=== PATIENT | female | born 1990 | race Caucasian/White ===

== ENCOUNTER 2017-09-02 08:55 | Day surgery (SDC) | payer OTHER ==
[2017-08-29 08:44] LABS: Absolute Monocytes 0.4 K/uL (0.1-1.3); Absolute Neutrophil 5.8 K/uL (1.8-8.0); Basophils % 0.6 % (0-1.3); Eosinophils % 1.6 % (0-4.4); Hematocrit 39.9 % (36.0-45.0); Lymphocytes % 32.1 % (15.3-44.8); MCH 31.1 pg (27.0-35.0); MPV 7.4 fL (7.6-11.3); Monocytes % 4.5 % (3.3-12.3); RBC Red Blood Cell Count 4.38 M/uL (3.86-4.86)
[~2017-09-02 08:55] MED LIST: DOXYCYCLINE 200 MG in NA CHLORIDE 0.9% 250 ML IVPB SCH
[2017-09-02 09:41] LABS: Specific Gravity 1.025 (1.005-1.030)
[2017-09-02] MEDS ORDERED: Ringers Lactate 1,000 ML IV ONE (10:02)
[2017-09-02] MEDS ORDERED: OXYTOCIN 10 UNIT/ML ML IV ONE (10:09)
[2017-09-02] MEDS ORDERED: METHYLERGONOVINE 0.2MG/ML AMP IM ONE (10:10)
[2017-09-02] MEDS ORDERED: MIDAZOLAM HCL 2 MG/2 ML INJ ONE (10:23)
[2017-09-02] MEDS ORDERED: PROPOFOL 200 MG/20 ML VIAL IV ONE (10:24)
[2017-09-02] MEDS ORDERED: LIDOCAINE 2% MPF 5 ML VIAL ONE (10:24)
[2017-09-02] MEDS ORDERED: ONDANSETRON 4 MG/2 ML VIAL ONE (10:25)
[2017-09-02] MEDS ORDERED: FENTANYL CITR 100 MCG/2 ML ONE (10:25)
[2017-09-02] MEDS ORDERED: SCOPOLAMINE HYDROBROMIDE PATCH TD ONE (10:34)
[2017-09-02] MEDS ORDERED: MEPERIDINE HCL 25 MG/0.5 ML ONE (11:30)
--- NOTE | 2017-09-02 21:23 | OP ---
Surgeon: Jake Rubi MD Preoperative Diagnosis: Inevitable . Procedure: Dilatation and curettage of the uterine endometrium for completion of . Postoperative Diagnosis: Inevitable . Description Of Procedure: After satisfactory level of general anesthesia was obtained, the patient w as prepped and draped in the usual fashion for vaginal surgery and high leg holders. A weighted spec ulum was placed in the posterior vagina. Cervix visualized, grasped with single-tooth tenaculum. Ut erus was sounded to approximately 10 cm and dilated sufficiently to accept an 8 curved suction curett e with productive moderate amount of tissue. This was followed by sharp curettage with Myah curett e and then suction curettage. The patient received 200 mg of doxycycline IV preoperatively for proph ylaxis. She received 0.2 mg IM methargen and 20 units of Pitocin was added to the IV fluids in the O R. She was awakened and taken to recovery room in satisfactory condition. Estimated total blood los s was less than 10 mL. FER/SANTI Voice ID: [id number] Report ID: [id number]
--- NOTE | 2017-09-02 21:25 | DS ---
Date of Discharge: 09/02/2017 DISMISSAL SUMMARY Final Hospital Discharge Diagnosis: Inevitable . Complications: None. Procedures: Dilatation and curettage of uterine endometrium for completion of . Hospital Course: The patient is a 27-year-old, female, 1, para 0, with nonviable p regnancy on ultrasound x2 through [facility]. She underwent dilatation and curettage fo r completion of an inevitable . She was dismissed to be seen back in my office in 2 weeks wi th the usual post D and C activity restrictions. Lab work included admission hemoglobin and hematocr it of 13.6, 39.9. On lab work, she was AB positive blood type, so did not require RhoGAM. She was dismissed with prescription for Tylenol No. 3, number 10 for pain relief, Methergine to compl ete a 24-hour course. FER/SANTI Voice ID: [id number] Report ID: [id number]
== END 2017-09-02 12:57 | disposition home or self-care (01) ==
LOC: OR 08:55
PROVIDERS: ATTEND Specialist
PROC: 10D17ZZ Extraction of Products of Conception, Retained, Via Natural or Artificial Opening (ICD-10-PCS; principal; 2017-09-02 10:00)
DX: O02.1 Missed abortion (principal); Z82.49 Family history of ischemic heart disease and other diseases of the circulatory system; Z83.3 Family history of diabetes mellitus
CPT/HCPCS: 36415; 81025; 85025; 86900; 86901; 88305; J2175; J2210; J2250; J2405; J2590; J3010

== ENCOUNTER 2022-01-06 09:49 | Emergency (ER) | payer OTHER ==
[2022-01-06 10:40] LABS: Urine Blood Negative (Negative); Urine Glucose Negative (Negative); Urine Protein Negative (Negative); Urine Specific Gravity <=1.005 (1.005-1.030)
[2022-01-06 11:49] LABS: Absolute Lymphocytes (CBC) 2.1 K/uL (0.7-4.9); Hematocrit 41.1 % (36.0-45.0); Lymphocytes % 15.5 % (15.3-44.8); MCV 89.7 fL (80-100); MPV 7.1 fL (7.6-11.3); RBC Red Blood Cell Count 4.59 M/uL (3.86-4.86)
[2022-01-06 12:07] LABS: Potassium 3.4 mmol/L (3.5-5.1)
--- NOTE | 2022-01-06 12:33 | RAD REPORT ---
EXAM DESCRIPTION: US - Transvaginal OB - 01/06/2022 11:32 am CLINICAL HISTORY: with pelvic pain COMPARISON: 2018 FINDINGS: The uterus measures 10 x 7 x 8 centimeters. The endometrial stripe measures 19 millimeter s. A gestational sac is not seen. Several uterine fibroids. Largest measures 5.5 centimeters. It is s ubserosal Right ovary normal size and echotexture. 2 centimeters cyst. Left ovary not seen secondary to overlying bowel gas The right and left adnexa unremarkable No significant free fluid IMPRESSION: Nonvisualization of a gestational sac within the endometrium. These findings could represent an early intrauterine in which the gestational sac is not se en. and even an ectopic can also result in this appearance. This all should be cor related clinically and with serial beta HCG levels. Followup endovaginal sonogram in 1 week recommend ed
[2022-01-06] MEDS ORDERED: NA CHLORIDE 0.9% 1,000 ML ONE (12:35)
[2022-01-06] MEDS ORDERED: ONDANSETRON 4 MG/2 ML VIAL ONE (12:35)
[2022-01-06] MEDS ORDERED: LACTULOSE 20 GM/30 ML UCUP ONE (14:03)
--- NOTE | 2022-01-06 14:46 | ER ---
Nurse's Notes [facility] Name: Toyin Estevez Age: 31 yrs Sex: Female : 1990 Arrival Date: 01/06/2022 Time: 09:51 Bed 11 Private MD: Diagnosis: Constipation;Less than 8 weeks gestation of Presentation: 01/06 10:31 Chief complaint: Patient states: Suprapubic and pelvic pain that began yesterday, worse ss today. Pt reports positive home test 3 days ago. Coronavirus screen: Client denies travel out of the [place] in the last 14 days. Ebola Screen: Patient denies exposure to infectious person. Patient denies travel to an Ebola-affected area in the 21 days before illness onset. Initial Sepsis Screen: Does the patient meet any 2 criteria? No. Patient's initial sepsis screen is negative. Does the patient have a suspected source of infection? No. Patient's initial sepsis screen is negative. Risk Assessment: Do you want to hurt yourself or someone else? Patient reports no desire to harm self or others. Onset of symptoms was January 05, 2022. 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 - Social history:: Smoking status: Patient denies any tobacco usage or history of. Assessment: 15:09 Reassessment: Patient appears in no apparent distress at this time. Patient is alert, ss oriented x 3, equal unlabored respirations, skin warm/dry/pink. Respiratory: Respiratory effort is even, unlabored, Respiratory pattern is regular, symmetrical. Vital Signs: 10:31 BP 131 / 95; Pulse 115; Resp 16; Temp 98.2(TE); Pulse Ox 100% on R/A; Weight 80.74 kg; ss Height 5 ft. 4 in. (162.56 cm); Pain 3/10; 10:31 Body Mass Index 30.55 (80.74 kg, 162.56 cm) ED Course: 09:51 Patient arrived in ED. mr 09:54 [facility] 09:54 Deborah Rankin MD is Attending Physician. 7 10:32 Triage completed. ss 10:32 Arm band placed on right wrist. ss 11:23 US Transvaginal Ob In Process Unspecified. EDMS 11:23 Pelvis Complete In Process Unspecified. EDMS 11:37 Inserted saline lock: 20 gauge in right antecubital area, using aseptic technique. zm Blood collected. 11:37 Basic Metabolic Panel Sent. zm 11:37 CBC with Diff Sent. zm 11:38 Quantitative Hcg Sent. zm 12:54 Placed in gown. Bed in low position. Call light in reach. Side rails up X 1. Door 7 closed. Noise minimized. Warm blanket given. 12:59 Fallon Sanchez, RAQUEL is Primary Nurse. 14:44 Maury White MD is Referral Physician. [facility] 15:09 No provider procedures requiring assistance completed. IV discontinued, intact, ss bleeding controlled, No redness/swelling at site. Pressure dressing applied. Administered Medications: 12:50 Drug: NS 0.9% 1000 ml Route: IV; Rate: 1 bolus; Site: right antecubital; ss 12:59 Not Given (Patient Refused): Zofran (Ondansetron) 4 mg IVP once; over 2 minutes ss 13:59 Drug: Lactulose 30 grams Volume: 45 ml; Route: PO; ss Outcome: 14:45 Discharge ordered by . [facility] 15:09 Discharged to home ambulatory. 15:09 Condition: good 15:09 Discharge instructions given to patient, family, Instructed on discharge instructions, follow up and referral plans. medication usage, Demonstrated understanding of instructions, follow-up care, medications, Prescriptions given X 1. 15:09 Patient left the ED. Signatures: Dispatcher [employer] Missy Mott Fallon Sanchez RN RN Missy Mclaughlin Mallory Virk Carrie Perry FNP FNP [facility] Corrections: (The following items were deleted from the chart) 10:32 10:32 PMHx: None; [facility] 10:33 10:31 Chief complaint: Patient states: Suprapubic and pelvic pain that began yesterday, ss worse today. ss
--- NOTE | 2022-01-06 14:46 | EDPHYS ---
Physician Documentation [facility] Name: Toyin Estevez Age: 31 yrs Sex: Female : 1990 Arrival Date: 01/06/2022 Time: 09:51 Bed 11 Private MD: ED Physician Deborah Rankin HPI: 01/06 10:15 This 31 yrs old Female presents to ER via Ambulatory with complaints of Abdominal Pain, jh7 Pelvic Pain. 10:15 The patient presents with abdominal pain in the lower abdomen, Pelvic pain. Onset: The jh7 symptoms/episode began/occurred 1 day(s) ago. 31-year-old female presents with pelvic pain since yesterday. Reports that the pain is worse when she sits down on the toilet. Reports mild nausea as well. States that she took a test 3 days ago and that it was positive. Also states that she has not had a bowel movement in 2 days. The patient reports that she has been under a lot of stress lately and thinks that this may be the cause. 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 - Social history:: Smoking status: Patient denies any tobacco usage or history of. ROS: 10:15 Constitutional: Negative for fever, chills, and weight loss, ENT: Negative for injury, jh7 pain, and discharge, Neck: Negative for injury, pain, and swelling, Cardiovascular: Negative for chest pain, palpitations, and edema, Respiratory: Negative for shortness of breath, cough, wheezing, and pleuritic chest pain, Back: Negative for injury and pain, MS/Extremity: Negative for injury and deformity, Skin: Negative for injury, rash, and discoloration, Neuro: Negative for headache, weakness, numbness, tingling, and seizure. 10:15 Abdomen/GI: Positive for nausea, constipation, Pelvic pain, Negative for diarrhea. 10:15 All other systems are negative. Exam: 10:15 Constitutional: This is a well developed, well nourished patient who is awake, alert, jh7 and in no acute distress. Eyes: Pupils equal round and reactive to light, extra-ocular motions intact. Lids and lashes normal. Conjunctiva and sclera are non-icteric and not injected. Cornea within normal limits. Periorbital areas with no swelling, redness, or edema. ENT: Nares patent. No nasal discharge, no septal abnormalities noted. Oropharynx with no redness, swelling, or masses, exudates, or evidence of obstruction, uvula midline. Mucous membranes moist. Cardiovascular: Regular rate and rhythm with a normal S1 and S2. No gallops, murmurs, or rubs. Normal PMI, no JVD. No pulse deficits. Respiratory: Lungs have equal breath sounds bilaterally, clear to auscultation and percussion. No rales, rhonchi or wheezes noted. No increased work of breathing, no retractions or nasal flaring. Back: No spinal tenderness. No costovertebral tenderness. Full range of motion. Skin: Warm, dry with normal turgor. Normal color with no rashes, no lesions, and no evidence of cellulitis. MS/ Extremity: Pulses equal, no cyanosis. Neurovascular intact. Full, normal range of motion. Neuro: Awake and alert, GCS 15, oriented to person, place, time, and situation. Motor strength 5/5 in all extremities. Sensory grossly intact. Normal gait. 10:15 Abdomen/GI: Inspection: abdomen appears normal, Bowel sounds: normal, Palpation: mild abdominal tenderness, in the suprapubic area. Vital Signs: 10:31 BP 131 / 95; Pulse 115; Resp 16; Temp 98.2(TE); Pulse Ox 100% on R/A; Weight 80.74 kg; ss Height 5 ft. 4 in. (162.56 cm); Pain 3/10; 10:31 Body Mass Index 30.55 (80.74 kg, 162.56 cm) ss MDM: 10:12 Patient medically screened. [facility] 14:58 Differential diagnosis: Ectopic , non-specific abd pain, Ovarian Torsion, jh7 Constipation, UTI. Data reviewed: vital signs, nurses notes, lab test result(s), radiologic studies, ultrasound. Data interpreted: Pulse oximetry: is 100 %. Interpretation: normal. Counseling: I had a detailed discussion with the patient and/or guardian regarding: the historical points, exam findings, and any diagnostic results supporting the discharge/admit diagnosis, the need for outpatient follow up, an OB/Gyne specialist, to return to the emergency department if symptoms worsen or persist or if there are any questions or concerns that arise at home. ED course: The patient remained stable throughout the ER visit. Informed her that the ultrasound did not show a gestational sac but according to her hCG quantitative, she likely has an early . Strongly advised her to follow-up with an CLINICAL TEAM MANAGER and to take stool softeners at home for constipation. The patient agreed with the plan of care.. 01/06 10:13 Order name: Basic Metabolic Panel; Complete Time: 12:27 [facility] 01/06 10:13 Order name: CBC with Diff; Complete Time: 12:02 [facility] 01/06 10:13 Order name: Quantitative Hcg; Complete Time: 12:27 [facility] 01/06 10:13 Order name: US Transvaginal Ob; Complete Time: 12:48 [facility] 01/06 10:40 Order name: Urine Dipstick-Ancillary; Complete Time: 11:39 [facility] 01/06 11:23 Order name: Pelvis Complete [facility] 01/06 10:13 Order name: IV Saline Lock; Complete Time: 11:37 [facility] 01/06 10:13 Order name: Labs collected and sent; Complete Time: 11:37 [facility] 01/06 10:13 Order name: NPO; Complete Time: 13:00 [facility] 01/06 10:13 Order name: Urine Dipstick-Ancillary (obtain specimen); Complete Time: 11:25 [facility] Administered Medications: 12:50 Drug: NS 0.9% 1000 ml Route: IV; Rate: 1 bolus; Site: right antecubital; ss 12:59 Not Given (Patient Refused): Zofran (Ondansetron) 4 mg IVP once; over 2 minutes ss 13:59 Drug: Lactulose 30 grams Volume: 45 ml; Route: PO; ss Disposition: 15:32 Co-signature as Attending Physician, Deborah Rankin MD STAFF ATTESTATION STATEMENT I sd2 was immediately available on-site in the Emergency Department for consultation in the care of the patient. Deborah Rankin MD. Disposition Summary: 01/06/22 14:45 Discharge Ordered Location: Home [facility] Problem: new [facility] Symptoms: have improved [facility] Condition: Stable [facility] Diagnosis - Constipation [facility] - Less than 8 weeks gestation of [facility] Followup: [facility] - With: Muary White MD - When: 2 - 3 days - Reason: Recheck today's complaints Discharge Instructions: - Discharge Summary Sheet [facility] - Constipation, Adult [facility] - Care [facility] Forms: - Medication Reconciliation Form [facility] - Thank You Letter [facility] Prescriptions: - Colace 100 mg Oral Tablet - take 1 tablet by ORAL route every 12 hours; 14 tablet; Refills: 0, Product [facility] Selection Permitted Signatures: Dispatcher [employer] [facility] Fallon Sanchez RN RN ss Carrie Perry FNP ICE HOCKEY COACH [facility] Deborah Rankin MD MD sd2 Corrections: (The following items were deleted from the chart) 10:32 10:32 PMHx: None; ss ss 11:25 10:13 Urine Test ordered. [facility]
[2022-01-06 16:38] VITALS: BP 131/95; TEMP 98.2; O2SAT 100
--- NOTE | 2022-01-08 14:20 | RAD REPORT ---
EXAM DESCRIPTION: US - Pelvis Complete - 01/06/2022 11:21 am CLINICAL HISTORY: with pelvic pain COMPARISON: 2018 FINDINGS: The uterus measures 10 x 7 x 8 centimeters. The endometrial stripe measures 19 millimeters . A gestational sac is not seen. Several uterine fibroids. Largest measures 5.5 centimeters. It is [place] bserosal Right ovary normal size and echotexture. 2 centimeters cyst. Left ovary not seen secondary to overlying bowel gas The right and left adnexa unremarkable No significant free fluid IMPRESSION: Nonvisualization of a gestational sac within the endometrium. These findings could represent an early intrauterine in which the gestational sac is not se en. and even an ectopic can also result in this appearance. This all should be cor related clinically and with serial beta HCG levels. Followup endovaginal sonogram in 1 week recommend ed
== END 2022-01-06 15:09 | disposition home or self-care (01) ==
LOC: ER 09:49
DX: O99.611 Diseases of the digestive system complicating pregnancy, first trimester (principal); K59.00 Constipation, unspecified; Z3A.01 Less than 8 weeks gestation of pregnancy
CPT/HCPCS: 85025; 80048; 36415; 84702; 81003; 76856; 76817; 99284; J7030; J2405